=== PATIENT | female | born 2000 | race Caucasian/White ===

== ENCOUNTER 2024-05-09 11:53 | Emergency (ER) | payer BC, SELFPAY ==
[2024-05-09 11:55] VITALS: BP 135/86
--- NOTE | 2024-05-09 14:00 | ED.GENMED ---
History of Present Illness
General
Chief Complaint: Musculo-Skeletal Complaint
Source: patient
Exam Limitations: none
Time Seen by Provider: 05/09/24 12:22
Nursing documentation reviewed up to this point in time: agreed with
History of Present Illness
History of Present Illness:
23-year-old female presenting to the emergency department today with concerns of right-sided rib discomfort over the past few days denies any nausea vomiting diarrhea abdominal pain chest pain shortness of breath. Denies any fevers additional
symptoms. No obvious preceding injury.
Past History
Past History
ED Past Medical History: None
ED Past Surgical History: None
Social History
Tobacco: Non-smoker
Review of Systems
Review of Systems
Allergies reviewed?: Yes
All Other Systems: ROS reviewed and negative except as documented in HPI and ROS
Phy Exam
Physical Exam
Physical Exam:
GENERAL: Alert , in no apparent distress
EYE: pupils equal and reactive
NECK: Supple, no significant adenopathy.
ENT: o/p clr, mmm.
CARDIAC: Discomfort when palpating the right anterior lateral ribs. Regular rate and rhythm .
LUNGS: Clear breath sounds bilaterally, no acute respiratory distress, no wheezes/rales/rhonchi
ABDOMEN: Soft, without focal tenderness, no r/g, no cvat
NEUROLOGICAL: Alert and oriented, no focal neuro deficits
SKIN: Warm and dry, skin intact.
MUSCULOSKELETAL: No edema, well perfused.
PSYCH: Normal and appropriate interaction.
Course
Orders/Labs/Results
Orders:
Orders
05/09/24 12:22
CR Ribs-right 3 Vw W/pa Chest* Urgent
Comment:
Reason For Exam: right rib pain
Vital Signs
Initial and Last Documented VS:
Initial Vital Signs
Temp Pulse Resp BP Pulse Ox
97.8 F 77 18 135/86 99
05/09/24 11:55 05/09/24 11:55 05/09/24 11:55 05/09/24 11:55 05/09/24 11:55
Last Documented Vital Signs
Temp Pulse Resp BP Pulse Ox
97.8 F 77 18 135/86 99
05/09/24 11:55 05/09/24 11:55 05/09/24 11:55 05/09/24 11:55 05/09/24 11:55
MDM/Problems Addressed
MDM/Problems Addressed:
23-year-old female presenting to the emergency department today with concerns of right-sided rib discomfort of the past few days noticed additional associated symptoms. Otherwise feels well symptoms worsening with position and certain movements.
X-ray without acute abnormalities. No abdominal pain clear lungs normal heart sounds patient appears stable for discharge likely mechanical rib discomfort. Return precautions given.
*Critical Care Note
Total Time (30-74mins, 75-104mins- exclusive of procedures): Not Applicable
ED Attending Note
-
Portions of this chart may have been created with voice recognition software.� Occasional wrong word or��sound alike� substitutions may have occurred due to the inherent limitations of voice recognition software.
Discharge Plan
Departure
Patient Disposition: Home (Routine Discharge)
Date of Disposition: 05/09/24
Time of Disposition: 14:03
Patient with high blood pressure during this ER visit?: No
Condition: Good
Covid-19: Not Applicable
Discharge Problem:
Rib pain on right side
Instructions: Bruised Rib (DC)
Prescriptions:
No Action
ondansetron 4 MG tablet,disintegrating
4 mg PO TIDPRN PRN (Reason: Nausea) Qty: 15 0RF
Referrals:
NONE,* [Family Provider] -
Activity Restrictions/Additional Instructions:
You came to the emergency department today with concerns of right-sided rib discomfort. Here you had a normal x-ray. Please follow closely as an outpatient. Return to the emergency department any worsening, new or concerning symptoms. In the
meantime please take NSAIDs for the next few days to help with symptoms.
Interventions
Interventions:
*Risk Screen - Suicide Last Done: 05/09/24 11:55
*General Assessment Last Done: 05/09/24 12:08
*Neglect/Abuse Screening Last Done: 05/09/24 11:55
ED- Fall Risk Assessment Last Done: 05/09/24 12:08
ED-Musculoskeletal Assessment Last Done: 05/09/24 12:08
Discharge Date and Time
Print Language: HEBREW
== END 2024-05-09 14:25 | disposition home or self-care (01) ==
LOC: EMR 11:53
PROVIDERS: EMERGENCY PHYSICIAN Student in an Organized Health Care Education/Training Program
DX: R07.81 Pleurodynia (principal)
CPT/HCPCS: 99283; 71101